=== PATIENT | female | born 1960 | race Caucasian/White ===

== ENCOUNTER → 2016-06-10 | Outpatient (CLI) | payer BC, OTHER ==
[~2016-06-10] MED LIST: ALPR0.5T3; CITA40TA11 PO; DULO30CA; ESTR1TAB24; ESTR2TAB PO; FRSM20T; LISI20TA; LORA1TAB PO; OMEP-10 PO; ONDN4T; POTA10TA86
--- NOTE | 2016-06-10 18:09 | Diagnostic Imaging Report ---
INDICATION: Pneumonia. Previous chest comparison is 02/05/2009. FINDINGS: The lungs are well aerated. There is a linear density in the right midlung which appears to be along the fissure. There is some alveolar infiltrate in the lingula. The lungs are otherwise clear. The heart is not enlarged. No hilar adenopathy. No pulmonary edema. No pneumothorax or pleural effusion. IMPRESSION: 1. Patchy alveolar infiltrate within the lingula on the left as well as linear infiltrate in the right midlung which appears to be along the fissure. These findings were not present in 2008. Dictated by: Dictated on workstation # [id number]
== END ==
LOC: RAD 17:09
PROVIDERS: ATTEND Internal Medicine Critical Care Medicine
DX: R91.8 Other nonspecific abnormal finding of lung field (principal); M79.7 Fibromyalgia; J30.9 Allergic rhinitis, unspecified
CPT/HCPCS: 71020

== ENCOUNTER → 2016-06-24 | Outpatient (CLI) | payer BC, OTHER ==
[~2016-06-24] MED LIST changes: +BARIUM SUSPENSION 105% (LIQUID POLIBAR PLUS) 240 ML/DOSE PO ONE; +BARIUM SUSPENSION 60% (LIQUID EZ PAQUE) 240 ML DOSE PO ONE
--- NOTE | 2016-06-24 09:00 | Diagnostic Imaging Report ---
CLINICAL INDICATION: Check for lung mass. EXAM: Chest x-ray PA and lateral views. COMPARISON: Chest x-ray dated 06/10/2016. FINDINGS: There is improved aeration of the lingular region with resolution of previously seen infiltrate. There is stable irregular and discoid-like opacity involving the right midlung field which may be related to atelectasis, or scarring. There is no developing mass like or nodular changes seen. There is no pneumothorax or pleural effusion. Pulmonary vasculature and cardiac silhouette is within normal limits. LAP-BAND is again seen. Surgical clips are seen overlying the right upper quadrant which could be related to cholecystectomy changes. Bones show no significant abnormality. IMPRESSION: 1: Interval resolution of previously seen lingular infiltrate. 2: Stable right midlung field irregular discoid opacity which may be related to atelectasis or scarring. There is no developing mass like or nodular changes seen. Follow up chest x-ray in 4 weeks is suggested to evaluate for interval resolution of this finding. If this finding persists, then chest CT scan would better evaluate. Dictated by: Dictated on workstation # [id number]
--- NOTE | 2016-06-24 11:28 | Diagnostic Imaging Report ---
EXAMINATION: A single contrast upper GI study was performed. TECHNIQUE: The patient drank thin barium with multiple fluoroscopic and overhead images over the esophagus and abdomen performed. Prior to that, a pain coordinator image was also performed. INDICATION: Reflux. History of gastric banding. FINDINGS: The pain coordinator image demonstrates a gastric band in a relatively transverse orientation. There are cholecystectomy clips seen. The patient drank contrast with demonstration of significant dilatation and evidence of mucosal nodularity, likely secondary to esophagitis. The caliber of the distal esophagus is up to 6.5 cm. There is slow passage of contrast through the gastric band in the proximal stomach with mild opacification of the stomach seen. The stomach demonstrates no significant abnormality on the available images. There is a normal appearance of the duodenal sweep. IMPRESSION: There is chronic appearing dilatation of the esophagus with nodularity, compatible with esophagitis. There is slow passage of a small amount of barium through a narrow passage at the level of the gastric band into the stomach seen. The report was faxed to the office of Samir Vincent APRN by SINDY at 11:30 AM. Dictated by: Dictated on workstation # [id number]
== END ==
LOC: RAD 08:21
PROVIDERS: ATTEND Nurse Practitioner Family
DX: R91.8 Other nonspecific abnormal finding of lung field (principal); K22.8 Other specified diseases of esophagus; K21.9 Gastro-esophageal reflux disease without esophagitis; M79.7 Fibromyalgia; J30.9 Allergic rhinitis, unspecified; Z98.84 Bariatric surgery status
CPT/HCPCS: 71020; 74241

== ENCOUNTER → 2016-07-09 | Outpatient (CLI) | payer BC, OTHER ==
[~2016-07-09] MED LIST changes: -BARIUM SUSPENSION 105% (LIQUID POLIBAR PLUS) 240 ML/DOSE PO ONE; -BARIUM SUSPENSION 60% (LIQUID EZ PAQUE) 240 ML DOSE PO ONE; +CATHETER FLUSH 10 ML SYR IV PRN; +IOHEXOL 350 MG/ML 100 ML (OMNIPAQUE 350) VIAL IV ONE; +NS 100 ML (IVPB) BAG IV ONE
[2016-07-09 11:15] LABS: ALBUMIN 3.9 G/DL (3.2-4.5); ANION GAP 7 MMOL/L (5-14); BLOOD UREA NITROGEN 10 MG/DL (7-18); BUN/CREATININE RATIO 15; CALCIUM 9.2 MG/DL (8.5-10.1); CARBON DIOXIDE 26 MMOL/L (21-32); CHLORIDE 108 MMOL/L (98-107); CREATININE SERUM 0.66 MG/DL (0.60-1.30); GFR ESTIMATED > 60; GLUCOSE 91 MG/DL (70-105); PHOSPHORUS 3.8 MG/DL (2.3-4.7); POTASSIUM 4.4 MMOL/L (3.6-5.0); SODIUM 141 MMOL/L (135-145)
--- NOTE | 2016-07-09 13:49 | Diagnostic Imaging Report ---
PROCEDURE: CT chest with contrast only. TECHNIQUE: Multiple contiguous axial images were obtained through the chest after administration of intravenous contrast. INDICATION: Refractory pneumonia. Patient has a lap band that appears to be good position. Esophagus is dilated with food residue within the lumen. Aorta appears normal. There are no pulmonary emboli. There is some atelectasis in the right upper lobe along the minor fissure. There are no infiltrates, effusions or pneumothoraces. IMPRESSION: Right middle lobe atelectasis along the fissure. Chest otherwise unremarkable. Dictated by: Dictated on workstation # [id number]
== END ==
LOC: RAD 10:27
PROVIDERS: ATTEND Internal Medicine Critical Care Medicine
DX: R91.8 Other nonspecific abnormal finding of lung field (principal); M79.7 Fibromyalgia; J30.9 Allergic rhinitis, unspecified
CPT/HCPCS: 36415; 71260; 80069

== ENCOUNTER 2020-11-08 05:43 | Outpatient (CLI) | payer OTHER ==
[~2020-11-08] VITALS: Ht 162.6 cm; Wt 16.8 kg
[~2020-11-08 05:43] MED LIST changes: -CATHETER FLUSH 10 ML SYR IV PRN; -IOHEXOL 350 MG/ML 100 ML (OMNIPAQUE 350) VIAL IV ONE; -NS 100 ML (IVPB) BAG IV ONE
[2020-11-08] MEDS ORDERED: CLON0.5T4 PO (12:55)
[2020-11-08] MEDS ORDERED: TRZ50T PO (12:55)
[2020-11-08] MEDS ORDERED: FLUO40CA PO (12:55)
[2020-11-08] MEDS ORDERED: CETI10TA17 PO (12:55)
== END 2020-11-08 16:26 | disposition home or self-care (01) ==
LOC: PREOP 05:43
PROVIDERS: ATTEND Surgery
DX: Z01.818 Encounter for other preprocedural examination (principal)

== ENCOUNTER → 2020-11-19 | Outpatient (CLI) | payer OTHER ==
[~2020-11-19] MED LIST changes: +CETI10TA17 PO; +CLON0.5T4 PO; +FLUO40CA PO; +TRZ50T PO
== END ==
LOC: LAB FS 10:10
PROVIDERS: ATTEND Nurse Practitioner Family
DX: Z12.11 Encounter for screening for malignant neoplasm of colon (principal); K21.9 Gastro-esophageal reflux disease without esophagitis; Z20.822 Contact with and (suspected) exposure to COVID-19
CPT/HCPCS: 87635

== ENCOUNTER 2020-11-21 09:18 | Day surgery (SDC) | payer OTHER ==
--- NOTE | 2020-11-08 10:16 | HISTORY AND PHYSICAL ---
DATE OF SERVICE: ATTENDING CENTER RECEPTIONIST: Echo Ryan APRN DATE OF ADMISSION: 11/14/2020. HISTORY OF PRESENT ILLNESS: The patient is a 60-year-old female well known to us. She has had issues with gastroesophageal reflux disease and weight loss; however, this may have been due to work stress mediated. She reports that approximately a year ago, she had severe stress at work, which affected her appetite and she did not eat very much at all and did lose a significant amount of weight. Since that time, she has quit that job and started a different job and her appetite did to increase; however, she states that with eating some types of foods, she does have significant reflux with epigastric burning sensation as well as a fullness. She does not report any hematemesis nor coffee-ground emesis. She is also in need of a screening colonoscopy. Her last colonoscopy was approximately 10 years ago. She states she does not report any major issues with diarrhea, no constipation as well as no red blood per rectum nor any dark tarry stools. She also does not report any family history of colon cancer; however, she does have a significant family history of cancers in general with her paternal grandmother having breast cancer, two maternal aunts having the same disease as well as a sister with osteochondral sarcoma. PAST MEDICAL HISTORY: Gastroesophageal reflux disease, anxiety, and depression. PAST SURGICAL HISTORY: Open right inguinal hernia repair in 1984, section in August 1987, laparoscopic cholecystectomy and tubal ligation in 2006, total hysterectomy in 2007, and laparoscopic adjustable gastric band in 2008. ALLERGIES: No known drug allergies. MEDICATIONS: 1. Trazodone 50 mg each day at bedtime. 2. Prozac daily. 3. 1 mg daily. SOCIAL HISTORY: Negative smoke, negative alcohol. FAMILY HISTORY: Paternal grandmother, breast cancer. Maternal aunt x2, breast cancer. Sister osteochondral sarcoma. REVIEW OF SYSTEMS: This is a slightly thin-appearing female, in no acute distress. She is not experiencing any shortness of breath or difficulty breathing. No chest pain, palpitations, diaphoresis. No nausea, vomiting, no diarrhea or constipation. She does have a heartburn, reflux and with epigastric fullness sensation as well as intermittent regurgitation. No hematemesis and no coffee ground emesis. No diarrhea, constipation, no red blood per rectum, and no dark tarry stools. No fever, chills, no recent inadvertent weight loss. All other review of systems negative. PHYSICAL EXAMINATION: VITAL SIGNS: Blood pressure 105/63. Current weight 124.5 pounds at 5 feet 4 inches. CHEST: Clear. Good breath sounds bilaterally. HEART: Regular and no murmurs. EXTREMITIES: No lower extremity edema and negative Homans sign. HEENT: No scleral icterus. NECK: No cervical lymphadenopathy. ABDOMEN: Soft, nontender, and nondistended. SKIN: Warm and dry. ASSESSMENT AND PLAN: A 60-year-old female with worsening gastroesophageal reflux disease as well as a need for screening colonoscopy. We will schedule this procedure simultaneously. Job ID: [id number] DocumentID: [id number] Dictated Date: 11/06/2020 17:19:41 Cementer Helper Date: 11/06/2020 18:32:24 Dictated By: MERVAT REEVES MD MTDD
[~2020-11-21] VITALS: Ht 162.6 cm; Wt 56.4 kg
[2020-11-21] MEDS ORDERED: LACTATED RINGERS 1,000 ML IV ONE (09:23)
[2020-11-21] MEDS ORDERED: LACTATED RINGERS 1,000 ML IV STA (09:25)
[2020-11-21] MEDS ORDERED: LIDOCAINE JELLY 2% 6 ML SYRINGE MM PRN (09:30)
[2020-11-21] MEDS ORDERED: HURRICAINE EXT TUBE (BENZOCAINE) XX PRN (09:30)
[2020-11-21 09:39] VITALS: BP 110/74
--- NOTE | 2020-11-21 10:03 | Progress Note-Pre Operative ---
Pre-Operative Progress Note H&P Reviewed The H&P was reviewed, patient examined and no changes noted. Date Seen by Provider: Nov 21, 2020 Time Seen by Provider: : Date H&P Reviewed: Nov 21, 2020 Time H&P Reviewed: : Pre-Operative Diagnosis: GERD, screening colo, anal lesion MERVAT REEVES MD Nov 21, 2020 10:03
--- NOTE | 2020-11-21 10:03 | Conscious Sedation/ASA ---
Conscious Sedation Pre-Proced Time 09:30 ASA Score 2 For ASA 3 and 4: Consider anesthesia and medical clearance. Also, for patients with a history of failed moderate sedation consider anesthesia. Airway Lungs Heart ASA score ASA 1: a normal healthy patient ASA 2: a patient with a mild systemic disease (mid diabetes, controlled hypertension, obesity ASA 3: a patient with a severe systemic disease that limits activity (angina, COPD, prior Myocardial infarction) ASA 4: a patient with an incapacitating disease that is a constant threat to life (CHF, renal failure) ASA 5: a moribund patient not expected to survive 24 hrs. (ruptured aneurysm) ASA 6: a declared brain- patient whose organs are being harvested. For emergent operations, add the letter E after the classification Mallampati Classification Grade 2 Sedation Plan Analgesia, Amnesia, Plan communicated to team members, Discussed options with patient/fam, Discussed risks with patient/fam The patient is an appropriate candidate to undergo the planned procedure, sedation, and anesthesia. The patient immediately re-assessed prior to indication. MERVAT REEVES MD Nov 21, 2020 10:02
--- NOTE | 2020-11-21 10:04 | Discharge Inst-Surgical ---
D/C Lap Instructions-LALA Follow Up Activity as tolerated High Fiber Diet 25g or more per day Avoid Alcohol, Caffeine, Spicy [place] and Acid foods. Drink 64 fluid oz or more of fluids per day. Symptoms to Report: Fever over 101 degree F, Nausea/Vomiting If any problems/questions: Contact your physician or go to Emergency Room MERVAT REEVES MD Nov 21, 2020 10:04
[2020-11-21] MEDS ORDERED: morphine INJ 10 MG/ML 1ML (SYR OR VIAL) IVP PRN ×2 (10:15)
[2020-11-21] MEDS ORDERED: ONDANSETRON 4 MG/2 ML (SDV) Z0FRAN IVP PRN (10:15)
[2020-11-21] MEDS ORDERED: HYDROcodone/APAP 5 MG/325 MG (LORTAB) TAB PO PRN (10:15)
[2020-11-21] MEDS ORDERED: ACETAMINOPHEN 325 MG TABLET PO PRN (10:15)
[2020-11-21] MEDS ORDERED: LIDOCAINE/EPI 1%-1:100,000 (XYLOCAINE) 20ML ONE (10:18)
[2020-11-21] MEDS ORDERED: MIDAZOLAM 2 MG/2 ML (VERSED) VIAL ONE (10:43)
[2020-11-21] MEDS ORDERED: PROPOFOL INJECTION 50 ML IV ONE (10:44)
[2020-11-21] MEDS ORDERED: proPOfol 200 MG/20 ML (DIPRIVAN) VIAL IV ONE (11:19)
[2020-11-21 11:50] VITALS: BP 110/61
[2020-11-21 11:55] VITALS: BP_SYST 109; BP_SYST 110; BP_DIAS 65
--- NOTE | 2020-11-21 12:04 | Progress Note-Post Operative ---
Post-Operative Progess Note Surgeon (s)/Procurement Officer (s) Surgeon MERVAT REEVES MD Procurement Officer: none Pre-Operative Diagnosis GERD, screening colo, anal lesion Post-Operative Diagnosis stage 3 ext anterior hemorroidal cushion, stage 2 int hemorrhoids. reflux esophagitis(stage 2), small gastric pouch, no band erosion, mild-mod gastritis. Procedure & Operative Findings Date of Procedure 11/21/20 Procedure Performed/Findings EGD with bx. Colonoscopy. laparoscopic adjustable gastric band adjustment. Anesthesia Type mac with local Estimated Blood Loss Estimated blood loss (mL): minimal Specimens/Packing Specimens Removed ge jxn, antrum MERVAT REEVES MD Nov 21, 2020 12:03
[2020-11-21 12:25] VITALS: BP 94/59
--- NOTE | 2020-11-21 14:41 | Anesthesia-General Post-Op ---
MAC Patient Condition Mental Status/LOC: Same as Preop Cardiovascular: Satisfactory Nausea/Vomiting: Absent Respiratory: Satisfactory Pain: Controlled Complications: Absent Post Op Complications Complications None Follow Up Care/Instructions Patient Instructions None needed. Anesthesiology Discharge Order Discharge Order Patient is doing well, no complaints, stable vital signs, no apparent adverse anesthesia problems. No complications reported per nursing. HELIO GARZA CRNA Nov 21, 2020 14:40
--- NOTE | 2020-11-21 16:12 | OPERATIVE REPORT ---
DATE OF SERVICE: 11/21/2020 ATTENDING PRIMARY TOOL OR DIE DRAWING CHECKER: Echo Ryan APRN PREOPERATIVE DIAGNOSES: Gastroesophageal reflux disease, screening colonoscopy, anal lesion. POSTOPERATIVE DIAGNOSES: Reflux esophagitis stage II, small gastric pouch, no band erosion, mild to moderate gastritis, chronic between stage II and III external hemorrhoidal cushion, stage II internal hemorrhoids, remainder of the rectum and colon were normal. PROCEDURE: EGD with biopsy, colonoscopy, laparoscopic adjustable gastric band adjustment. SURGEON: Mervat Mccarty MD. ANESTHESIA: Monitored anesthesia care with local. ESTIMATED BLOOD LOSS: Minimal. FINDINGS: Reflux esophagitis stage II, small gastric pouch, no band erosion, mild to moderate gastritis, chronic between stage II and III external hemorrhoidal cushion, stage II internal hemorrhoids, remainder of the rectum and colon were normal. DISPOSITION: The patient tolerated the procedure well. INDICATIONS: The patient is a 60-year-old female known to us. She has had issues with gastroesophageal reflux disease and weight loss; however, she feels that this may have been due to work stress mediated. She reports that approximately a year ago, she experience severe stress at work, which affected her appetite and she did not eat very much and did lose a significant amount of weight. Since quitting the job, her appetite has improved. During this timeframe, she also has developed worsening epigastric pressure sensation as well as reflux. She does not report any hematemesis, no coffee-ground emesis. She is also in need of a screening colonoscopy, but her last colonoscopy was 10 years ago. She also reports that upon defecation, she feels a fleshy cushion within the perianal region, which she is unsure of that, she wanted evaluated as well under anesthesia. She does not report any family history of colon cancer; however, she does have a significant family history of cancers in general with her paternal grandmother having breast cancer in two maternal aunts having the same disease as well as a sister with osteochondrosarcoma. DESCRIPTION OF PROCEDURE: The patient was brought to the endoscopy suite, laid in the left lateral decubitus position with head slightly elevated. After adequate IV pain and sedative medications and monitored anesthesia care, the mouthpiece was applied. The endoscope was placed in the mouth, visualizing the pharynx and hypopharyngeal region. Vocal cords, epiglottis and vallecula identified and appeared to be normal. The endoscope was then gently intubated into the esophageal opening and esophagus insufflated. The endoscope was then advanced through the first, second and third portion of esophagus at the level of GE junction, reflux esophagitis stage II identified. There were no ulcers or strictures identified and a biopsy was taken with forceps with visualization of good hemostasis. The endoscope was then advanced into the gastric pouch, which appeared to be small; however, in proper location. The endoscope was then advanced through the band and endoscope retroflexed visualizing no band erosion. There was a mild to moderate gastritis and a biopsy was taken of the antrum to rule out H. pylori with visualization of good hemostasis. The endoscope was then advanced to the pylorus and the first and second portion of the duodenum, which appeared normal with no distal obstructions. The endoscope was then slowly withdrawn while taking a second look and suctioning of residual air with no additional findings. The patient tolerated the procedure well. We feel that she has an over restricted and we proceeded with a band adjustment. The abdomen was prepped and draped in standard surgical fashion and the overlying skin to the port was anesthetized using 1% lidocaine. The port was accessed using a 20-gauge non-coring Jimenez needle and 0.5 mL of saline removed from the band. The needle was then removed from the port and a Band-Aid placed into the insertion site. We then proceeded with the colonoscopy portion of the procedure and a digital rectal examination was performed. There was a chronic anterior external hemorrhoidal cushion, which was between stage II and III, this was likely the lesion that she had identified. She had also had mild chronic stage II internal hemorrhoids. Normal sphincter tone was felt and there were no palpable masses. The endoscope was then intubated and anus and rectum gently insufflated. The endoscope was then advanced through the valves of Bliss of the rectum with no polyps or any neoplasms identified. Through the sigmoid colon, there were no diverticulosis identified. The endoscope was then advanced to the remainder of the descending, transverse and ascending colon to the cecum. These segments were normal. No polyps or any neoplasms identified. The endoscope was then slowly withdrawn while taking a second look and suctioning of residual air with no additional findings. The patient tolerated the procedure well. We will have her continue with medical management with small and more frequent meals as well as adherent to high protein diet with lean meat protein sources and when she feels any formal restrictions to stop eating and not to drink with her meals. We also want her to continue her PPI acid carport erector. We also want her to proceed with an incorporation of a high fiber diet with fiber supplementation, which should equal or exceed 25 grams daily to promote soft stools on a daily basis. If the hemorrhoidal cushion becomes worsens or becomes more continues to become irritating and she would like to have this removed. We will recommend a formal hemorrhoidectomy, which would require a general anesthesia. Job ID: [id number] DocumentID: [id number] Dictated Date: 11/21/2020 11:53:51 Decating Machine Operator Date: 11/21/2020 16:12:03 Dictated By: MERVAT MCCARTY MD
== END 2020-11-21 12:30 | disposition home or self-care (01) ==
LOC: ENDO 09:18
PROVIDERS: ATTEND Surgery
DX: Z12.11 Encounter for screening for malignant neoplasm of colon (principal); K21.00 Gastro-esophageal reflux disease with esophagitis, without bleeding; K62.89 Other specified diseases of anus and rectum; K31.4 Gastric diverticulum; K29.70 Gastritis, unspecified, without bleeding; K64.1 Second degree hemorrhoids; M79.7 Fibromyalgia; K64.8 Other hemorrhoids; F41.9 Anxiety disorder, unspecified; F32.9 Major depressive disorder, single episode, unspecified; Z90.49 Acquired absence of other specified parts of digestive tract; Z79.899 Other long term (current) drug therapy; Z90.710 Acquired absence of both cervix and uterus; Z80.3 Family history of malignant neoplasm of breast; Z80.8 Family history of malignant neoplasm of other organs or systems